=== PATIENT | male | born 1970 | race Caucasian/White ===

== ENCOUNTER → 2018-01-27 09:03 | Outpatient (CLI) | payer MEDICARE, SELFPAY ==
[2018-01-27 12:39] LABS: Absolute Lymphocyte Count 2.05 X10^3/ul (0.83-4.51); Absolute Neutrophil Count 6.1 X10^3/uL (2.0-7.7); Basophil# 0.05 X10^3/uL; Basophil% 0.5 % (0-1); Eosinophil# 0.26 X10^3/uL; Eosinophils% 2.8 % (0-5); Hematocrit 47.7 % (40-54); Hemoglobin 16.2 g/dl (13.0-16.5); Lymphocyte # 2.05 X10^3/ul (4.0); Lymphocyte % 21.9 % (19-41); Mean Corpuscular Volume 94.3 fL (80-94); Mean Platelet Vol. 10.4 fl (6.2-12.0); Monocyte# 0.89 X10^3/uL; Monocyte% 9.5 % (0-10); Neutrophil # 6.09 X10^3/uL (2.7-7.7); Neutrophil % 65.1 % (47-70); Platelet Count 228 K/mm3 (150-450); RBC Distribution Width CV 13.7 % (11.6-14.6); RBC Distribution Width SD 46.7 fl (35.1-43.9); Red Blood Count 5.06 M/mm3 (4.6-6.2); White Blood Count 9.4 K/mm3 (4.4-11.0)
[2018-01-27 12:52] LABS: POSITIVE COUNT NO; POSITIVE DIFFERENTIAL NO; POSITIVE MORPHOLOGY NO
[2018-01-27 13:06] LABS: AST(SGOT) 21 U/L (15-37); Alanine Aminotransfer ALT/SGPT 47 U/L (16-61); Albumin, Serum 3.7 g/dL (3.2-5.0); Alkaline Phosphatase 94 U/L (45-117); Anion Gap 8 (5-15); BUN 13 mg/dL (7-18); BUN/Creat Ratio 14.9 RATIO (10-20); Calcium,Total 8.5 mg/dL (8.5-10.1); Chloride 106 mmol/L (98-107); Cholesterol 126 mg/dL (200); Creatinine, Serum 0.87 mg/dL (0.70-1.30); EST Glomerular Filtration Rate 99 mL/min (>60); Est Glom Filt Rate - Afr Amer 120 mL/min (>60); Globulin 3.7 g/dL (2.2-4.2); Glucose 126 mg/dL (74-106); High Density Lipoprotein 30 mg/dL; Potassium 4.1 mmol/L (3.5-5.1); Protein, Total 7.4 g/dL (6.4-8.2); Sodium Level 140 mmol/L (136-145); Thyroid Stim Hormone (TSH) 1.85 uIU/mL (0.358-3.74); Triglycerides 292 mg/dL; Very Low Density Lipoprotein 58 mg/dL (5-40)
== END ==
PROVIDERS: Family Provider Family Medicine Geriatric Medicine; PCP Family Medicine Geriatric Medicine; Visit Provider Family Medicine Geriatric Medicine
DX: E11.9 Type 2 diabetes mellitus without complications (principal); E78.4 Other hyperlipidemia; I10 Essential (primary) hypertension
CPT/HCPCS: 36415; 80053; 80061; 84443; 85025

== ENCOUNTER 2018-06-24 08:34 | Emergency (ER) | payer MEDICARE, SELFPAY ==
[2018-06-24 08:34] VITALS: BP 144/83; PULSE 77; RESP 17; TEMP 36.2; O2SAT 96; BMI 32.5
--- NOTE | 2018-06-24 08:45 | ED.VISSUMM ---
- ER Visit Summary Date of Service: 06/24/18 Chief Complaint: Rash History of Present Illness: The patient is a 48 M presenting for evaluation secondary to rash. Patient states that he developed a rash yesterday on his left chest. It seemed to spread throughout the course of the day. It is painful. He denies that he is having any sort of cough shortness of breath fevers or any other associated symptoms. He does have a history of chickenpox. Physical Examination: Vital signs within normal limits no fever. Skin exam shows evidence of a dermatomal vesicular rash. Test Results: None indicated Emergency Department Course and Treatment: Patient presented with dermatomal vesicular rash consistent with zoster. He will be treated with Valtrex. Disposition: Discharge Impression: 1. Varicella-zoster This note was generated with [employer] dictation software. It may contain incorrect words, spelling, and punctuation that were not noted in review of the chart prior to signing ED Disposition - Plan for ED Patient: Disposition: Home or Assisted Living Chief Complaint: Rash Diagnosis: Shingles Instructions: ED Shingles Prescriptions: Valacyclovir HCl [Valtrex] 1,000 mg PO TID #21 tab Referrals: Jb Antunez Chi, MD [Primary Care Provider] - As Needed
--- NOTE | 2018-06-24 08:52 | ED.DCSUM_ITS ---
- ER Visit Summary Date of Service: 06/24/18 Chief Complaint: Rash History of Present Illness: The patient is a 48 M presenting for evaluation secondary to rash. Patient states that he developed a rash yesterday on his left chest. It seemed to spread throughout the course of the day. It is painful. He denies that he is having any sort of cough shortness of breath fevers or any other associated symptoms. He does have a history of chickenpox. Physical Examination: Vital signs within normal limits no fever. Skin exam shows evidence of a dermatomal vesicular rash. Test Results: None indicated Emergency Department Course and Treatment: Patient presented with dermatomal vesicular rash consistent with zoster. He will be treated with Valtrex. Disposition: Discharge Impression: 1. Varicella-zoster This note was generated with [employer] dictation software. It may contain incorrect words, spelling, and punctuation that were not noted in review of the chart prior to signing ED Disposition - Plan for ED Patient: Disposition: Home or Assisted Living Chief Complaint: Rash Diagnosis: Shingles Instructions: ED Shingles Prescriptions: Valacyclovir HCl [Valtrex] 1,000 mg PO TID #21 tab Referrals: Jb Antunez Chi, MD [Primary Care Provider] - As Needed
== END 2018-06-24 09:11 | disposition home or self-care (01) ==
LOC: ED 09:00
PROVIDERS: Emergency Provider Emergency Medicine; Family Provider Family Medicine Geriatric Medicine; PCP Family Medicine Geriatric Medicine
DX: B01.9 Varicella without complication (principal); I42.9 Cardiomyopathy, unspecified; I10 Essential (primary) hypertension; Z79.899 Other long term (current) drug therapy
CPT/HCPCS: 99282

== ENCOUNTER → 2018-08-03 10:18 | Outpatient (CLI) | payer MEDICARE, SELFPAY ==
[2018-08-03 12:31] LABS: Absolute Lymphocyte Count 1.76 X10^3/ul (0.83-4.51); Absolute Neutrophil Count 6.8 X10^3/uL (2.0-7.7); Basophil# 0.05 X10^3/uL; Basophil% 0.5 % (0-1); Eosinophil# 0.26 X10^3/uL; Eosinophils% 2.7 % (0-5); Hematocrit 48.6 % (40-54); Hemoglobin 16.4 g/dl (13.0-16.5); Lymphocyte # 1.76 X10^3/ul (4.0); Lymphocyte % 18.4 % (19-41); Mean Corp Hgb Conc 33.7 g/gl (32-36); Mean Corpuscular Hgb 31.8 pg (27.0-32.0); Mean Corpuscular Volume 94.4 fL (80-94); Mean Platelet Vol. 10.6 fl (6.2-12.0); Monocyte# 0.67 X10^3/uL; Neutrophil # 6.79 X10^3/uL (2.7-7.7); Neutrophil % 71.3 % (47-70); Platelet Count 218 K/mm3 (150-450); RBC Distribution Width CV 13.4 % (11.6-14.6); RBC Distribution Width SD 46.2 fl (35.1-43.9); Red Blood Count 5.15 M/mm3 (4.6-6.2); White Blood Count 9.5 K/mm3 (4.4-11.0)
[2018-08-03 12:40] LABS: POSITIVE COUNT NO; POSITIVE DIFFERENTIAL NO; POSITIVE MORPHOLOGY NO
[2018-08-03 12:54] LABS: ALB/GLOB Ratio 0.9 RATIO (0.9-2.4); AST(SGOT) 17 U/L (15-37); Alanine Aminotransfer ALT/SGPT 33 U/L (16-61); Albumin, Serum 3.3 g/dL (3.2-5.0); Alkaline Phosphatase 108 U/L (45-117); Anion Gap 8 (5-15); BUN 14 mg/dL (7-18); BUN/Creat Ratio 15.4 RATIO (10-20); Calcium,Total 8.5 mg/dL (8.5-10.1); Chloride 104 mmol/L (98-107); Cholesterol 168 mg/dL (200); Creatinine, Serum 0.91 mg/dL (0.70-1.30); EST Glomerular Filtration Rate 95 mL/min (>60); Est Glom Filt Rate - Afr Amer 114 mL/min (>60); Globulin 3.8 g/dL (2.2-4.2); Glucose 149 mg/dL (74-106); High Density Lipoprotein 31 mg/dL; Potassium 3.8 mmol/L (3.5-5.1); Protein, Total 7.1 g/dL (6.4-8.2); Sodium Level 141 mmol/L (136-145); Thyroid Stim Hormone (TSH) 2.34 uIU/mL (0.358-3.74); Triglycerides 458 mg/dL; Uric Acid 6.5 mg/dL (3.5-7.2)
== END ==
LOC: POLAB3 10:38
PROVIDERS: Family Provider Family Medicine Geriatric Medicine; PCP Family Medicine Geriatric Medicine; Visit Provider Family Medicine Geriatric Medicine
DX: E11.9 Type 2 diabetes mellitus without complications (principal); E78.49 Other hyperlipidemia; I10 Essential (primary) hypertension; M10.9 Gout, unspecified
CPT/HCPCS: 36415; 80053; 80061; 84443; 84550; 85025

== ENCOUNTER → 2019-09-21 15:28 | Outpatient (CLI) | payer MEDICARE, SELFPAY ==
[2019-09-21 17:00] LABS: Absolute Lymphocyte Count 2.59 X10^3/uL (0.83-4.51); Absolute Neutrophil Count 4.8 X10^3/uL (2.0-7.7); Basophil% 1.2 % (0-1); Eosinophil# 0.36 X10^3/uL; Eosinophils% 4.2 % (0-5); Hematocrit 51.8 % (40-54); Hemoglobin 17.4 g/dL (13.0-16.5); Lymphocyte # 2.59 X10^3/ul (4.0); Lymphocyte % 30.4 % (19-41); Mean Corp Hgb Conc 33.6 g/dL (32-36); Mean Corpuscular Hgb 30.7 pg (27.0-32.0); Mean Corpuscular Volume 91.5 fL (80-94); Mean Platelet Vol. 9.9 fl (6.2-12.0); Monocyte# 0.68 X10^3/uL; NRBC Flagged by Analyzer 0 % (0-5); Neutrophil # 4.77 X10^3/uL (2.7-7.7); Neutrophil % 55.8 % (47-70); Platelet Count 225 K/mm3 (150-450); RBC Distribution Width CV 13.2 % (11.6-14.6); RBC Distribution Width SD 44.1 fl (35.1-43.9); Red Blood Count 5.66 M/mm3 (4.6-6.2); White Blood Count 8.5 K/mm3 (4.4-11.0)
[2019-09-21 17:29] LABS: Vitamin D,25 Hydroxy 6.5 ng/mL (29.95-100.01)
[2019-09-21 17:33] LABS: ALB/GLOB Ratio 0.9 RATIO (0.9-2.4); AST(SGOT) 11 U/L (15-37); Alanine Aminotransfer ALT/SGPT 40 U/L (16-61); Albumin, Serum 3.7 g/dL (3.2-5.0); Alkaline Phosphatase 93 U/L (45-117); Anion Gap 7 (5-15); BUN 11 mg/dL (7-18); BUN/Creat Ratio 11.5 RATIO (10-20); Calcium,Total 8.7 mg/dL (8.5-10.1); Chloride 99 mmol/L (98-107); Cholesterol 330 mg/dL (200); Creatinine, Serum 0.95 mg/dL (0.70-1.30); EST Glomerular Filtration Rate 89 mL/min (>60); Est Glom Filt Rate - Afr Amer 108 mL/min (>60); Globulin 4.1 g/dL (2.2-4.2); Glucose 154 mg/dL (74-106); High Density Lipoprotein 33 mg/dL; Potassium 3.9 mmol/L (3.5-5.1); Protein, Total 7.8 g/dL (6.4-8.2); Sodium Level 134 mmol/L (136-145); Thyroid Stim Hormone (TSH) 2.49 uIU/mL (0.358-3.74); Triglycerides 1001 mg/dL
== END ==
PROVIDERS: PCP Family Medicine Geriatric Medicine; Visit Provider Family Medicine Geriatric Medicine
DX: I10 Essential (primary) hypertension (principal); E11.9 Type 2 diabetes mellitus without complications; E55.9 Vitamin D deficiency, unspecified; E78.5 Hyperlipidemia, unspecified
CPT/HCPCS: 36415; 80053; 80061; 82306; 84443; 85025

== ENCOUNTER → 2019-09-26 11:32 | Outpatient (CLI) | payer MEDICARE, SELFPAY ==
--- NOTE | 2019-09-26 | LES_PTH ---
PATIENT: STAN SCOTT [facility] U#:[id number] AGE/SX: 55/M ROOM: RE09/26/[address]: Dr. Jb Antunez MD : 1970 BED: DIS: SPEC #: [id number] RECD: 09/26/19 12:54 STATUS: LUCIAN RESarai #: [id number] ISABELLA: 09/26/19 00:[address]: Jb Antunez Chi DEPT: SURGICAL PATHOLOGY RECD BY: Mario Phan Tissues: A - Skin of external ear, NOS B - Skin of neck, NOS Procedures: Surgery Specimen Level IV HEADER OPERATION: Biopsy PRE-OP DIAGNOSIS: L98.9 TISSUE SUBMITTED: A - Left ear, B - Left neck MICROSCOPIC DIAGNOSIS A. Left ear, biopsy: Pigmented seborrheic keratosis. B. Left neck, biopsy: Squamous papilloma. SJ:ermelinda 09/27/19 MICROSCOPIC DESCRIPTION Slides are reviewed. GROSS DESCRIPTION A - Received in fixative is one container labeled with the patient's name and designated left ear. The specimen consists of a flat round piece of brown skin measuring 0.5 x 0.5 x 0.1 cm. The specimen is inked and submitted entirely in one cassette. It will be bisected at the time of embedding. B - Received in fixative is one container labeled with the patient's name and designated left neck. The specimen consists of a round piece of la-brown skin measuring 0.3 cm in diameter and 0.1 cm in thickness. The specimen is totally submitted in one cassette. / SJ:rg 09/26/19 TC:1 CPT: 73581 x2
== END ==
PROVIDERS: PCP Family Medicine Geriatric Medicine; Visit Provider Family Medicine Geriatric Medicine
DX: L98.9 Disorder of the skin and subcutaneous tissue, unspecified (principal)
CPT/HCPCS: 88305

== ENCOUNTER → 2019-10-25 07:36 | Outpatient (CLI) | payer MEDICARE, SELFPAY ==
[2019-10-11 11:14] VITALS: BMI 32.5
--- NOTE | 2019-10-25 07:39 | RAD_ITS ---
STUDY: X-RAY - LEFT KNEE REASON FOR EXAM: Male, 49 years old. PAIN. NKI, ACUTE. CLINICAL HISTORY: 49 years Male, PAIN. NKI, ACUTE. COMPARISON: None FINDINGS: [Studies of the left knee in 4 projections shows no evidence of fracture, dislocation, or bony destruction.] RAD/Knee 4 or More Views IMPRESSION: [Normal left knee.] Electronically Signed: Rigoberto Ayad, at 12:27 EST Tel , Service support ,
== END ==
LOC: RAD 07:37
PROVIDERS: PCP Family Medicine Geriatric Medicine; Referring Provider Family Medicine Geriatric Medicine; Visit Provider Family Medicine Geriatric Medicine
DX: M25.562 Pain in left knee (principal)
CPT/HCPCS: 73564

== ENCOUNTER → 2019-11-10 07:41 | Outpatient (CLI) | payer MEDICARE, SELFPAY ==
[2019-10-11 11:14] VITALS: BMI 32.5
--- NOTE | 2019-11-10 07:42 | ECHOD_ITS ---
Reason For Study: DYSPNEA/SOB Procedure This was a 2D Doppler, Color Flow transthoracic echocardiogram. Exam performed in department. Left Ventricle Moderately dilated left ventricle. The estimated ejection fraction is 30 %. Stage 1 diastolic dysfunction. No regional wall motion abnormalities noted. Right Ventricle Normal RV size. Normal systolic function. Atria Normal left atrium. Normal right atrium. Mitral Valve Normal mitral valve. Tricuspid Valve Normal tricuspid valve. Mild tricuspid valve insufficiency. Aortic Valve The aortic valve is not well visualized. Pulmonic Valve The pulmonic valve is not well visualized. Great Vessels Normal aortic root. The pulmonary artery is normal size. Normal inferior vena cava. Pericardium/Pleural No pericardial effusion. MMode/2D Measurements & Calculations LVIDd: 6.1 cm IVSd: 1.1 cm Ao root diam: 3.0 cm LVIDs: 4.9 cm LVPWd: 1.1 cm RVDd: 3.4 cm FS: 19.7 % LAV(MOD-bp): 44.5 ml LA A4 area: 14.8 cm2 LA dimension(2D): 4.0 cm LAV(MOD-bp) Indexed: 19.0 ml/m2 LAV(MOD-sp2): 50.0 ml LAV(MOD-sp4): 37.5 ml RA A4 area: 12.4 cm2 Time Measurements MV dec time: 0.18 sec Doppler Measurements & Calculations MV E max boo: 53.6 cm/sec Lat Peak E' Boo: 7.8 cm/sec Med Peak E' Boo: 5.1 cm/sec MV A max boo: 67.2 cm/sec E/E' lat: 6.9 E/E' med: 10.5 MV E/A: 0.80 Ao V2 max: 121.2 cm/sec LV V1 max: 93.1 cm/sec PA V2 max: 103.3 cm/sec Ao max P.9 mmHg LV V1 max P.5 mmHg TR max boo: 224.6 cm/sec TR max P.2 mmHg Interpretation Summary Moderately dilated left ventricle. The estimated ejection fraction is 30 %. Stage 1 diastolic dysfunction. Mild tricuspid valve insufficiency. Compared to prior study, there is no significant change. Ordering Physician: Sp Bush Referring Physician: Jb Antunez Chi Performed By: Sandra Aguilar, BARRERA, RVT
== END ==
LOC: CVS 07:42
PROVIDERS: PCP Family Medicine Geriatric Medicine; Referring Provider Internal Medicine Cardiovascular Disease; Visit Provider Internal Medicine Cardiovascular Disease
DX: I42.8 Other cardiomyopathies (principal)
CPT/HCPCS: 93306

== ENCOUNTER → 2019-11-21 13:36 | Outpatient (CLI) | payer MEDICARE, SELFPAY ==
[2019-10-11 11:14] VITALS: BMI 32.5
[2019-11-21 16:48] LABS: Anion Gap 5 (5-15); BUN 16 mg/dL (7-18); BUN/Creat Ratio 16.6 RATIO (10-20); Calcium,Total 9.1 mg/dL (8.5-10.1); Chloride 103 mmol/L (98-107); Creatinine, Serum 0.96 mg/dL (0.70-1.30); EST Glomerular Filtration Rate 88 mL/min (>60); Est Glom Filt Rate - Afr Amer 107 mL/min (>60); Glucose 117 mg/dL (74-106); Potassium 4.1 mmol/L (3.5-5.1); Sodium Level 136 mmol/L (136-145)
== END ==
LOC: POLAB3 13:36
PROVIDERS: PCP Family Medicine Geriatric Medicine; Visit Provider Family Medicine Geriatric Medicine
DX: E87.6 Hypokalemia (principal)
CPT/HCPCS: 36415; 80048

== ENCOUNTER → 2020-01-08 10:55 | Outpatient (CLI) | payer MEDICARE, SELFPAY ==
[2020-01-01 10:02] VITALS: BMI 32.5
--- NOTE | 2020-01-08 10:57 | MRI_ITS ---
STUDY: MRI LEFT KNEE REASON FOR EXAM: Male, 49 years old. Knee pain TECHNIQUE: Standardized fat and water weighted pulse sequences were obtained in all 3 orthogonal planes. COMPARISON: X-ray 10/25/2019 FINDINGS: Normal medial meniscus. Normal hyaline cartilage of the medial femorotibial compartment. Normal medial femoral condyle and tibial plateau. Normal medial collateral ligamentous complex (MCL). Normal distal semimembranosus, gracilis and semitendinosus tendons. Normal lateral meniscus. Normal hyaline cartilage of the lateral femorotibial compartment. Normal lateral femoral condyle and tibial plateau. Normal proximal tibiofibular articulation. Normal lateral collateral (fibular) ligament. Normal popliteus tendon. Normal biceps femoris tendon. Normal anterior cruciate ligament (ACL). Normal posterior cruciate ligament (PCL). Shallow trochlear groove with lateral subluxation of patella and edema superolateral Hoffa''s fat pad consistent with patellofemoral maltracking. Normal hyaline cartilage of the patellofemoral compartment. Normal medial and lateral patellar retinaculum. Normal quadriceps tendon. Normal patellar tendon. Normal Hoffa''s fat pad. There is no joint effusion. The soft tissues are unremarkable. The otherwise visualized osseous structures are unremarkable. MRI/Lower Ext Joint Only (Routine) IMPRESSION: Patellofemoral maltracking. Electronically Signed: Nghia Tesfaye MD at 12:49 EDT Tel , Service support ,
== END ==
LOC: MRI 10:57
PROVIDERS: PCP Family Medicine Geriatric Medicine; Referring Provider Orthopaedic Surgery; Visit Provider Orthopaedic Surgery
DX: M23.92 Unspecified internal derangement of left knee (principal)
CPT/HCPCS: 73721

== ENCOUNTER → 2020-03-14 11:26 | Outpatient (CLI) | payer MEDICARE, SELFPAY ==
[2019-10-11 11:14] VITALS: BMI 32.5
[2020-01-01 10:02] VITALS: BMI 32.5
[2020-03-14 12:02] LABS: Absolute Lymphocyte Count 2.36 X10^3/uL (0.83-4.51); Absolute Neutrophil Count 5.5 X10^3/uL (2.0-7.7); Basophil% 1.1 % (0-1); Eosinophil# 0.24 X10^3/uL; Eosinophils% 2.6 % (0-5); Hematocrit 48.3 % (40-54); Hemoglobin 16.1 g/dL (13.0-16.5); Lymphocyte # 2.36 X10^3/ul (4.0); Lymphocyte % 25.7 % (19-41); Mean Corp Hgb Conc 33.3 g/dL (32-36); Mean Corpuscular Hgb 31.4 pg (27.0-32.0); Mean Corpuscular Volume 94.3 fL (80-94); Monocyte# 0.99 X10^3/uL; Monocyte% 10.8 % (0-10); NRBC Flagged by Analyzer 0 % (0-5); Neutrophil # 5.47 X10^3/uL (2.7-7.7); Neutrophil % 59.5 % (47-70); Platelet Count 226 K/mm3 (150-450); RBC Distribution Width CV 13.2 % (11.6-14.6); Red Blood Count 5.12 M/mm3 (4.6-6.2); White Blood Count 9.2 K/mm3 (4.4-11.0)
[2020-03-14 12:24] LABS: AST(SGOT) 17 U/L (15-37); Alanine Aminotransfer ALT/SGPT 32 U/L (16-61); Albumin, Serum 3.7 g/dL (3.2-5.0); Alkaline Phosphatase 87 U/L (45-117); Anion Gap 4 (5-15); BUN 11 mg/dL (7-18); BUN/Creat Ratio 12.8 RATIO (10-20); Calcium,Total 8.6 mg/dL (8.5-10.1); Chloride 107 mmol/L (98-107); Cholesterol 160 mg/dL (200); Creatinine, Serum 0.86 mg/dL (0.70-1.30); EST Glomerular Filtration Rate 100 mL/min (>60); Est Glom Filt Rate - Afr Amer 121 mL/min (>60); Globulin 3.6 g/dL (2.2-4.2); Glucose 126 mg/dL (74-106); High Density Lipoprotein 32 mg/dL; Protein, Total 7.3 g/dL (6.4-8.2); Sodium Level 138 mmol/L (136-145); Thyroid Stim Hormone (TSH) 1.98 uIU/mL (0.358-3.74); Triglycerides 384 mg/dL; Very Low Density Lipoprotein 77 mg/dL (5-40)
== END ==
LOC: POLAB3 11:26
PROVIDERS: PCP Family Medicine Geriatric Medicine; Visit Provider Family Medicine Geriatric Medicine
DX: E11.9 Type 2 diabetes mellitus without complications (principal); E55.9 Vitamin D deficiency, unspecified; E78.5 Hyperlipidemia, unspecified; I10 Essential (primary) hypertension
CPT/HCPCS: 36415; 80053; 80061; 84443; 85025

== ENCOUNTER → 2020-05-22 13:34 | Outpatient (CLI) | payer MEDICARE, SELFPAY ==
[2020-04-15 09:42] VITALS: BMI 33.7
--- NOTE | 2020-05-22 13:36 | ECHOCS_ITS ---
Version 2 Reason For Study: CHF Procedure This was a 2D Doppler, Color Flow transthoracic echocardiogram. Contrast injection was performed. Exam performed in department. Left Ventricle Normal LV size. Mild concentric left ventricular hypertrophy. The estimated ejection fraction is 25 %. Moderately severe global left ventricular systolic dysfunction. Stage 1 diastolic dysfunction. There is moderate to severe global hypokinesis of the left ventricle. Right Ventricle Normal RV size. Normal systolic function. Atria The left atrium is mildly enlarged. Normal right atrium. Mitral Valve Normal mitral valve. Tricuspid Valve Normal tricuspid valve. Aortic Valve The aortic valve is not well visualized. Pulmonic Valve The pulmonic valve is not well visualized. Great Vessels Normal aortic root. The pulmonary artery is normal size. Normal inferior vena cava. Pericardium/Pleural No pericardial effusion. Medication Diluted definity 5ml given slow IV push to enhance endocardial definition. MMode/2D Measurements & Calculations LVIDd: 5.0 cm IVSd: 1.2 cm Ao root diam: 2.8 cm LVIDs: 4.3 cm LVPWd: 1.3 cm RVDd: 3.7 cm FS: 15.2 % LAV(MOD-bp): 38.3 ml LVAd ap4: 39.8 cm2 SV(MOD-sp4): 57.6 ml LAV(MOD-bp) Indexed: 16.1 ml/m2 EDV(MOD-sp4): 152.6 ml LAV(MOD-sp2): 33.4 ml EDV(sp4-el): 159.2 ml LAV(MOD-sp4): 37.4 ml LVAs ap4: 29.9 cm2 ESV(MOD-sp4): 95.0 ml ESV(sp4-el): 99.3 ml EF(MOD-sp4): 37.7 % EF(sp4-el): 37.6 % SV(sp4-el): 59.9 ml LA A4 area: 16.1 cm2 LA dimension(2D): 4.0 cm RA A4 area: 14.7 cm2 Doppler Measurements & Calculations MV E max boo: 48.3 cm/sec Lat Peak E' Boo: 8.7 cm/sec Med Peak E' Boo: 5.7 cm/sec MV A max boo: 74.0 cm/sec E/E' lat: 5.5 E/E' med: 8.4 MV E/A: 0.65 Ao V2 max: 123.1 cm/sec LV V1 max: 91.7 cm/sec PA V2 max: 89.0 cm/sec Ao max P.1 mmHg LV V1 max P.4 mmHg Ao V2 mean: 95.4 cm/sec Ao mean P.8 mmHg Ao V2 VTI: 21.9 cm Interpretation Summary The estimated ejection fraction is 25 %. Moderately severe global left ventricular systolic dysfunction. There is moderate to severe global hypokinesis of the left ventricle. Stage 1 diastolic dysfunction. Normal LV size. Mild concentric left ventricular hypertrophy. Compared to previous study, the left ventricular systolic function is the same.. Ordering Physician: Rigoberto Pereyra Referring Physician: Jb Antunez Chi Performed By: Teodora Pereyra RDCS, KRIS
== END ==
LOC: CVS 13:36
PROVIDERS: PCP Family Medicine Geriatric Medicine; Referring Provider Nurse Practitioner Family; Visit Provider Nurse Practitioner Family
DX: I50.9 Heart failure, unspecified (principal); I42.8 Other cardiomyopathies
CPT/HCPCS: 93306; Q9957; A4216; C8929

== ENCOUNTER → 2020-06-17 09:04 | Outpatient (CLI) | payer MEDICARE, SELFPAY ==
[2020-04-15 09:42] VITALS: BMI 33.7
[2020-06-17 12:21] LABS: Absolute Lymphocyte Count 1.96 X10^3/uL (0.83-4.51); Absolute Neutrophil Count 4.5 X10^3/uL (2.0-7.7); Basophil# 0.08 X10^3/uL; Basophil% 1.1 % (0-1); Eosinophil# 0.16 X10^3/uL; Eosinophils% 2.2 % (0-5); Hematocrit 48.3 % (40-54); Hemoglobin 15.8 g/dL (13.0-16.5); Lymphocyte # 1.96 X10^3/ul (4.0); Lymphocyte % 26.4 % (19-41); Mean Corp Hgb Conc 32.7 g/dL (32-36); Mean Corpuscular Hgb 30.9 pg (27.0-32.0); Mean Corpuscular Volume 94.5 fL (80-94); Monocyte# 0.73 X10^3/uL; Monocyte% 9.8 % (0-10); NRBC Flagged by Analyzer 0 % (0-5); Neutrophil # 4.48 X10^3/uL (2.7-7.7); Neutrophil % 60.2 % (47-70); Platelet Count 228 K/mm3 (150-450); RBC Distribution Width CV 13.3 % (11.6-14.6); RBC Distribution Width SD 46.9 fl (35.1-43.9); Red Blood Count 5.11 M/mm3 (4.6-6.2); White Blood Count 7.4 K/mm3 (4.4-11.0)
[2020-06-17 12:43] LABS: AST(SGOT) 18 U/L (15-37); Alanine Aminotransfer ALT/SGPT 35 U/L (16-61); Albumin, Serum 3.5 g/dL (3.2-5.0); Alkaline Phosphatase 82 U/L (45-117); Anion Gap 9 (5-15); BUN 15 mg/dL (7-18); BUN/Creat Ratio 16.3 RATIO (10-20); Calcium,Total 7.9 mg/dL (8.5-10.1); Chloride 99 mmol/L (98-107); Cholesterol 148 mg/dL (200); Creatinine, Serum 0.92 mg/dL (0.70-1.30); EST Glomerular Filtration Rate 93 mL/min (>60); Est Glom Filt Rate - Afr Amer 112 mL/min (>60); Globulin 3.4 g/dL (2.2-4.2); Glucose 120 mg/dL (74-106); High Density Lipoprotein 33 mg/dL; Potassium 3.8 mmol/L (3.5-5.1); Protein, Total 6.9 g/dL (6.4-8.2); Sodium Level 135 mmol/L (136-145); Thyroid Stim Hormone (TSH) 2.14 uIU/mL (0.358-3.74); Triglycerides 391 mg/dL; Very Low Density Lipoprotein 78 mg/dL (5-40)
== END ==
PROVIDERS: PCP Family Medicine Geriatric Medicine; Visit Provider Family Medicine Geriatric Medicine
DX: E11.9 Type 2 diabetes mellitus without complications (principal); E78.5 Hyperlipidemia, unspecified; I10 Essential (primary) hypertension
CPT/HCPCS: 36415; 80053; 80061; 84443; 85025

== ENCOUNTER → 2020-10-30 09:25 | Outpatient (CLI) | payer MEDICARE, SELFPAY ==
[2020-04-15 09:42] VITALS: BMI 33.7
[2020-10-30 12:21] LABS: Absolute Lymphocyte Count 1.68 X10^3/uL (0.83-4.51); Absolute Neutrophil Count 3.9 X10^3/uL (2.0-7.7); Basophil# 0.09 X10^3/uL; Basophil% 1.3 % (0-1); Eosinophil# 0.21 X10^3/uL; Eosinophils% 3.1 % (0-5); Hematocrit 48.2 % (40-54); Hemoglobin 16.1 g/dL (13.0-16.5); Lymphocyte # 1.68 X10^3/ul (4.0); Lymphocyte % 25.1 % (19-41); Mean Corp Hgb Conc 33.4 g/dL (32-36); Mean Corpuscular Hgb 31.5 pg (27.0-32.0); Mean Corpuscular Volume 94.3 fL (80-94); Mean Platelet Vol. 10.6 fl (6.2-12.0); Monocyte# 0.75 X10^3/uL; Monocyte% 11.2 % (0-10); NRBC Flagged by Analyzer 0 % (0-5); Neutrophil # 3.93 X10^3/uL (2.7-7.7); Platelet Count 216 K/mm3 (150-450); RBC Distribution Width CV 13.4 % (11.6-14.6); RBC Distribution Width SD 46.6 fl (35.1-43.9); Red Blood Count 5.11 M/mm3 (4.6-6.2); White Blood Count 6.7 K/mm3 (4.4-11.0)
[2020-10-30 12:50] LABS: AST(SGOT) 20 U/L (15-37); Alanine Aminotransfer ALT/SGPT 35 U/L (16-61); Albumin, Serum 3.7 g/dL (3.2-5.0); Alkaline Phosphatase 85 U/L (45-117); Anion Gap 6 (5-15); BUN 12 mg/dL (7-18); BUN/Creat Ratio 13.1 RATIO (10-20); Calcium,Total 8.9 mg/dL (8.5-10.1); Chloride 101 mmol/L (98-107); Cholesterol 144 mg/dL (200); Creatinine, Serum 0.92 mg/dL (0.70-1.30); EST Glomerular Filtration Rate 93 mL/min (>60); Est Glom Filt Rate - Afr Amer 113 mL/min (>60); Globulin 3.6 g/dL (2.2-4.2); Glucose 138 mg/dL (74-106); High Density Lipoprotein 32 mg/dL; Potassium 3.9 mmol/L (3.5-5.1); Protein, Total 7.3 g/dL (6.4-8.2); Sodium Level 135 mmol/L (136-145); Thyroid Stim Hormone (TSH) 2.31 uIU/mL (0.358-3.74); Triglycerides 325 mg/dL; Very Low Density Lipoprotein 65 mg/dL (5-40)
== END ==
LOC: POLAB3 09:25
PROVIDERS: PCP Family Medicine Geriatric Medicine; Visit Provider Family Medicine Geriatric Medicine
DX: E11.9 Type 2 diabetes mellitus without complications (principal); E78.5 Hyperlipidemia, unspecified; I10 Essential (primary) hypertension
CPT/HCPCS: 36415; 80053; 80061; 84443; 85025

== ENCOUNTER → 2021-02-21 08:50 | Outpatient (CLI) | payer MEDICARE, SELFPAY ==
[2020-04-15 09:42] VITALS: BMI 33.7
[2021-02-21 12:34] LABS: Absolute Lymphocyte Count 2.29 X10^3/uL (0.83-4.51); Absolute Neutrophil Count 4.6 X10^3/uL (2.0-7.7); Basophil% 1.3 % (0-1); Eosinophil# 0.24 X10^3/uL; Eosinophils% 3.1 % (0-5); Hematocrit 49.9 % (40-54); Hemoglobin 16.7 g/dL (13.0-16.5); Lymphocyte # 2.29 X10^3/ul (0.83-4.51); Lymphocyte % 29.1 % (19-41); Mean Corp Hgb Conc 33.5 g/dL (32-36); Mean Corpuscular Hgb 31.2 pg (27.0-32.0); Mean Corpuscular Volume 93.1 fL (80-94); Mean Platelet Vol. 9.9 fl (6.2-12.0); Monocyte# 0.61 X10^3/uL; Monocyte% 7.8 % (0-10); NRBC Flagged by Analyzer 0 % (0-5); Neutrophil % 58.4 % (47-70); Platelet Count 206 K/mm3 (150-450); RBC Distribution Width CV 13.7 % (11.6-14.6); RBC Distribution Width SD 46.9 fl (35.1-43.9); Red Blood Count 5.36 M/mm3 (4.6-6.2); White Blood Count 7.9 K/mm3 (4.4-11.0)
[2021-02-21 12:56] LABS: Vitamin D,25 Hydroxy 14.5 ng/mL
[2021-02-21 13:08] LABS: ALB/GLOB Ratio 1.1 RATIO (0.9-2.4); AST(SGOT) 16 U/L (15-37); Alanine Aminotransfer ALT/SGPT 41 U/L (16-61); Albumin, Serum 3.7 g/dL (3.2-5.0); Alkaline Phosphatase 70 U/L (45-117); Anion Gap 8 (5-15); BUN 17 mg/dL (7-18); BUN/Creat Ratio 17.7 RATIO (10-20); Calcium,Total 8.6 mg/dL (8.5-10.1); Chloride 101 mmol/L (98-107); Cholesterol 195 mg/dL (200); Creatinine, Serum 0.96 mg/dL (0.70-1.30); EST Glomerular Filtration Rate 88 mL/min (>60); Est Glom Filt Rate - Afr Amer 107 mL/min (>60); Globulin 3.5 g/dL (2.2-4.2); Glucose 191 mg/dL (74-106); High Density Lipoprotein 27 mg/dL; Potassium 3.9 mmol/L (3.5-5.1); Protein, Total 7.2 g/dL (6.4-8.2); Sodium Level 135 mmol/L (136-145); Thyroid Stim Hormone (TSH) 3.09 uIU/mL (0.358-3.74); Triglycerides 678 mg/dL; Uric Acid 6.6 mg/dL (3.5-7.2)
== END ==
LOC: POLAB3 08:51
PROVIDERS: PCP Family Medicine Geriatric Medicine; Referring Provider Family Medicine Geriatric Medicine; Visit Provider Family Medicine Geriatric Medicine
DX: E11.9 Type 2 diabetes mellitus without complications (principal); E55.9 Vitamin D deficiency, unspecified; E78.5 Hyperlipidemia, unspecified; I10 Essential (primary) hypertension; M10.9 Gout, unspecified
CPT/HCPCS: 36415; 80053; 80061; 82306; 84443; 84550; 85025

== ENCOUNTER → 2021-05-26 09:42 | Outpatient (CLI) | payer MEDICARE, SELFPAY ==
[2021-03-31 08:17] VITALS: BMI 34.7
--- NOTE | 2021-05-26 09:46 | ECHOCS_ITS ---
Reason For Study: CHF Procedure This was a 2D Doppler, Color Flow transthoracic echocardiogram. The study was technically difficult. Contrast injection was performed. Exam performed in department. Left Ventricle Normal LV size. Mild concentric left ventricular hypertrophy. The estimated ejection fraction is 45 %. Stage 1 diastolic dysfunction. There is borderline global hypokinesis of the left ventricle. Right Ventricle Normal RV size. Normal systolic function. Atria Normal left atrium. Normal right atrium. Mitral Valve Normal mitral valve. Tricuspid Valve Normal tricuspid valve. Great Vessels Normal aortic root. The pulmonary artery is normal size. Pericardium/Pleural No pericardial effusion. Medication 22 gauge I.V. with prn adaptor inserted into right arm. Diluted definity 4.0ml given slow IV push to enhance endocardial definition. MMode/2D Measurements & Calculations LVIDd: 5.5 cm IVSd: 1.2 cm Ao root diam: 3.5 cm LVIDs: 4.3 cm LVPWd: 1.3 cm RVDd: 3.4 cm FS: 21.0 % LAV(MOD-bp): 49.3 ml LVAd ap4: 40.2 cm2 LVAd ap2: 38.1 cm2 LAV(MOD-bp) Indexed: 20.4 ml/m2 LVLd ap4: 9.1 cm LVLd ap2: 8.3 cm LAV(MOD-sp2): 46.9 ml EDV(MOD-sp4): 147.0 ml EDV(MOD-sp2): 142.3 ml LAV(MOD-sp4): 51.0 ml EDV(sp4-el): 150.7 ml EDV(sp2-el): 148.9 ml LVAs ap4: 27.0 cm2 LVAs ap2: 28.1 cm2 LVLs ap4: 7.6 cm LVLs ap2: 7.6 cm ESV(MOD-sp4): 79.0 ml ESV(MOD-sp2): 83.7 ml ESV(sp4-el): 81.4 ml ESV(sp2-el): 88.3 ml EF(MOD-sp4): 46.3 % EF(MOD-sp2): 41.2 % EF(sp4-el): 46.0 % SV(MOD-sp4): 68.1 ml SV(MOD-sp2): 58.6 ml SV(sp4-el): 69.3 ml LA dimension(2D): 3.7 cm LA A4 area: 18.4 cm2 RA A4 area: 13.2 cm2 Doppler Measurements & Calculations MV E max boo: 64.2 cm/sec Lat Peak E' Boo: 9.0 cm/sec Med Peak E' Boo: 6.6 cm/sec MV A max boo: 74.7 cm/sec E/E' lat: 7.2 E/E' med: 9.8 MV E/A: 0.86 Ao V2 max: 147.6 cm/sec LV V1 max: 100.3 cm/sec TR max boo: 269.4 cm/sec Ao max P.7 mmHg LV V1 max P.0 mmHg TR max P.0 mmHg ECHO/Echo Complete W/ Contrast Interpretation Summary Normal LV size. The estimated ejection fraction is 45 %. Stage 1 diastolic dysfunction. Mild concentric left ventricular hypertrophy. Contrast injection was performed. Compared to previous study, the left ventricu lar systolic function has improved.. Ordering Physician: Caterina Burroughs Referring Physician: FELIPE DING Performed By: Savannah Rae, BARRERA, RVT
== END ==
LOC: CVS 09:45
PROVIDERS: PCP Family Medicine Geriatric Medicine; Referring Provider Nurse Practitioner Gerontology; Visit Provider Nurse Practitioner Gerontology
DX: I42.8 Other cardiomyopathies (principal); I50.9 Heart failure, unspecified
CPT/HCPCS: 93306; Q9957; A4216; C8929; J3490

== ENCOUNTER 2021-09-04 09:23 | Outpatient (CLI) | payer MEDICARE, SELFPAY ==
[2021-09-04 11:41] LABS: Absolute Neutrophil Count 8.9 X10^3/uL (2.0-7.7); Basophil# 0.09 X10^3/uL; Basophil% 0.7 % (0-1); Eosinophil# 0.31 X10^3/uL; Eosinophils% 2.6 % (0-5); Hematocrit 45.3 % (40-54); Hemoglobin 15.3 g/dL (13.0-16.5); Lymphocyte % 14.1 % (19-41); Mean Corp Hgb Conc 33.8 g/dL (32-36); Mean Corpuscular Hgb 31.7 pg (27.0-32.0); Mean Corpuscular Volume 93.8 fL (80-94); Mean Platelet Vol. 10.3 fl (6.2-12.0); Monocyte# 1.01 X10^3/uL; Monocyte% 8.4 % (0-10); NRBC Flagged by Analyzer 0 % (0-5); Neutrophil % 73.9 % (47-70); Platelet Count 213 K/mm3 (150-450); RBC Distribution Width CV 13.5 % (11.6-14.6); RBC Distribution Width SD 46.6 fl (35.1-43.9); Red Blood Count 4.83 M/mm3 (4.6-6.2); White Blood Count 12.1 K/mm3 (4.4-11.0)
[2021-09-04 12:02] LABS: ALB/GLOB Ratio 0.8 RATIO (0.9-2.4); AST(SGOT) 15 U/L (15-37); Alanine Aminotransfer ALT/SGPT 34 U/L (16-61); Albumin, Serum 3.3 g/dL (3.2-5.0); Alkaline Phosphatase 102 U/L (45-117); Anion Gap 7 (5-15); BUN 13 mg/dL (7-18); Calcium,Total 8.7 mg/dL (8.5-10.1); Chloride 101 mmol/L (98-107); Cholesterol 142 mg/dL (200); Creatinine, Serum 0.86 mg/dL (0.70-1.30); EST Glomerular Filtration Rate 99 mL/min (>60); Est Glom Filt Rate - Afr Amer 120 mL/min (>60); Globulin 4.1 g/dL (2.2-4.2); Glucose 127 mg/dL (74-106); High Density Lipoprotein 30 mg/dL; Potassium 3.7 mmol/L (3.5-5.1); Protein, Total 7.4 g/dL (6.4-8.2); Sodium Level 138 mmol/L (136-145); Thyroid Stim Hormone (TSH) 2.36 uIU/mL (0.358-3.74); Triglycerides 257 mg/dL; Very Low Density Lipoprotein 51 mg/dL (5-40)
== END 2021-09-04 23:59 | disposition short-term general hospital (02) ==
LOC: POLAB3 09:25
PROVIDERS: PCP Family Medicine Geriatric Medicine; Visit Provider Family Medicine Geriatric Medicine
DX: E11.9 Type 2 diabetes mellitus without complications (principal); E78.5 Hyperlipidemia, unspecified; I10 Essential (primary) hypertension
CPT/HCPCS: 36415; 80053; 80061; 84443; 85025

== ENCOUNTER 2021-11-21 08:52 | Outpatient (CLI) | payer MEDICARE, SELFPAY ==
[2021-11-21 11:18] LABS: Absolute Lymphocyte Count 1.87 X10^3/uL (0.83-4.51); Absolute Neutrophil Count 5.3 X10^3/uL (2.0-7.7); Basophil# 0.07 X10^3/uL; Basophil% 0.9 % (0-1); Eosinophil# 0.19 X10^3/uL; Eosinophils% 2.3 % (0-5); Hematocrit 46.3 % (40-54); Hemoglobin 16.1 g/dL (13.0-16.5); Lymphocyte # 1.87 X10^3/ul (0.83-4.51); Lymphocyte % 23.1 % (19-41); Mean Corp Hgb Conc 34.8 g/dL (32-36); Mean Corpuscular Hgb 32.3 pg (27.0-32.0); Mean Corpuscular Volume 92.8 fL (80-94); Mean Platelet Vol. 10.4 fl (6.2-12.0); Monocyte# 0.64 X10^3/uL; Monocyte% 7.9 % (0-10); NRBC Flagged by Analyzer 0 % (0-5); Neutrophil # 5.31 X10^3/uL (2.7-7.7); Neutrophil % 65.4 % (47-70); Platelet Count 228 K/mm3 (150-450); RBC Distribution Width CV 13.9 % (11.6-14.6); RBC Distribution Width SD 47.2 fl (35.1-43.9); Red Blood Count 4.99 M/mm3 (4.6-6.2); White Blood Count 8.1 K/mm3 (4.4-11.0)
[2021-11-21 11:46] LABS: AST(SGOT) 21 U/L (15-37); Alanine Aminotransfer ALT/SGPT 37 U/L (16-61); Albumin, Serum 3.5 g/dL (3.2-5.0); Alkaline Phosphatase 83 U/L (45-117); Anion Gap 6 (5-15); BUN 16 mg/dL (7-18); BUN/Creat Ratio 12.3 RATIO (10-20); Calcium,Total 8.6 mg/dL (8.5-10.1); Chloride 101 mmol/L (98-107); Cholesterol 149 mg/dL (200); EST Glomerular Filtration Rate 62 mL/min (>60); Est Glom Filt Rate - Afr Amer 75 mL/min (>60); Globulin 3.6 g/dL (2.2-4.2); Glucose 172 mg/dL (74-106); High Density Lipoprotein 31 mg/dL; Potassium 4.1 mmol/L (3.5-5.1); Protein, Total 7.1 g/dL (6.4-8.2); Sodium Level 136 mmol/L (136-145); Thyroid Stim Hormone (TSH) 1.72 uIU/mL (0.358-3.74); Triglycerides 351 mg/dL; Very Low Density Lipoprotein 70 mg/dL (5-40)
== END 2021-11-21 23:59 | disposition home or self-care (01) ==
LOC: POLAB3 08:53
PROVIDERS: PCP Family Medicine Geriatric Medicine; Visit Provider Family Medicine Geriatric Medicine
DX: E11.9 Type 2 diabetes mellitus without complications (principal); E78.5 Hyperlipidemia, unspecified; I10 Essential (primary) hypertension
CPT/HCPCS: 36415; 80053; 80061; 84443; 85025

== ENCOUNTER → 2022-01-20 | Outpatient (CLI) | payer MEDICARE, SELFPAY ==
--- NOTE | 2022-01-20 08:30 | ART_ITS ---
Reason For Study: PVD Procedure A bilateral lower extremity continuous wave Doppler with analog waveform analysis,segmental pressures,and ankle brachial indexes without exercise. Left Segmental Pressures Left brachial= 115mmHg. Left posterior tibial artery = 143mmHg. Left dorsalis pedis artery = 142mmHg. Left digit = 120 mmHg. The left dorsalis pedis waveforms are triphasic. The left posterior tibial artery waveforms are triphasic. Right Segmental Pressures Right brachial= 116mmHg. Right posterior tibial artery = 138mmHg. Right dorsalis pedis artery = 130mmHg. Right digit = 125 mmHg. The right dorsalis pedis waveforms are triphasic. The right posterior tibial artery waveforms are triphasic. Indices The right ankle brachial index by the dorsalis pedis is 1.12. The right ankle brachial index by the posterior tibial artery is 1.19. The right digital-brachial index is 1.08. The left ankle brachial index by the dorsalis pedis is 1.22. The left ankle brachial index by the posterior tibial artery is 1.23. The left digital-brachial index is 1.03. VL/Lower Ext Art Exam w/o Exercis Interpretation Summary Triphasic Doppler waveforms are noted at ankle level bilaterally. Pulse-volume recordings appear satisfactory at all levels bilaterally, including low thigh, calf, ankle, and d igital levels. Resting ankle-brachial indices are normal bilaterally. Digital-brachial indices are normal bilaterally. There is no evidence of significant arterial occlusive disease in the lower ext remities bilaterally. Ordering Physician: Km Hearn Referring Physician: Jb Antunez Chi Performed By: Roberta Joseph RVT
== END | disposition home or self-care (01) ==
LOC: CVS 08:26
PROVIDERS: PCP Family Medicine Geriatric Medicine; Referring Provider Podiatrist; Visit Provider Podiatrist
DX: I73.9 Peripheral vascular disease, unspecified (principal)
CPT/HCPCS: 93923

== ENCOUNTER → 2022-05-22 | Outpatient (CLI) | payer MEDICARE, SELFPAY ==
[2022-05-22 12:01] LABS: Absolute Lymphocyte Count 1.88 X10^3/uL (0.83-4.51); Absolute Neutrophil Count 4.9 X10^3/uL (2.0-7.7); Basophil# 0.08 X10^3/uL; Eosinophil# 0.23 X10^3/uL; Eosinophils% 2.9 % (0-5); Hematocrit 46.7 % (40-54); Lymphocyte # 1.88 X10^3/ul (0.83-4.51); Lymphocyte % 24.1 % (19-41); Mean Corp Hgb Conc 34.3 g/dL (32-36); Mean Corpuscular Hgb 32.5 pg (27.0-32.0); Mean Corpuscular Volume 94.9 fL (80-94); Mean Platelet Vol. 10.2 fl (6.2-12.0); Monocyte# 0.71 X10^3/uL; Monocyte% 9.1 % (0-10); NRBC Flagged by Analyzer 0 % (0-5); Neutrophil # 4.87 X10^3/uL (2.7-7.7); Neutrophil % 62.5 % (47-70); Platelet Count 211 K/mm3 (150-450); RBC Distribution Width CV 13.6 % (11.6-14.6); RBC Distribution Width SD 47.9 fl (35.1-43.9); Red Blood Count 4.92 M/mm3 (4.6-6.2); White Blood Count 7.8 K/mm3 (4.4-11.0)
[2022-05-22 12:26] LABS: AST(SGOT) 14 U/L (15-37); Alanine Aminotransfer ALT/SGPT 31 U/L (16-61); Albumin, Serum 3.4 g/dL (3.2-5.0); Alkaline Phosphatase 77 U/L (45-117); Anion Gap 8 (5-15); BUN 17 mg/dL (7-18); BUN/Creat Ratio 16.8 RATIO (10-20); Calcium,Total 8.6 mg/dL (8.5-10.1); Chloride 104 mmol/L (98-107); Cholesterol 177 mg/dL (200); Creatinine, Serum 1.01 mg/dL (0.70-1.30); EST Glomerular Filtration Rate 83 mL/min (>60); Est Glom Filt Rate - Afr Amer 100 mL/min (>60); Globulin 3.5 g/dL (2.2-4.2); Glucose 184 mg/dL (74-106); High Density Lipoprotein 29 mg/dL; Potassium 3.9 mmol/L (3.5-5.1); Protein, Total 6.9 g/dL (6.4-8.2); Sodium Level 140 mmol/L (136-145); Triglycerides 605 mg/dL; Uric Acid 6.8 mg/dL (3.5-7.2)
== END | disposition home or self-care (01) ==
LOC: POLAB3 08:40
PROVIDERS: PCP Family Medicine Geriatric Medicine; Visit Provider Family Medicine Geriatric Medicine
DX: E11.9 Type 2 diabetes mellitus without complications (principal); E55.9 Vitamin D deficiency, unspecified; E78.5 Hyperlipidemia, unspecified; I10 Essential (primary) hypertension; M10.9 Gout, unspecified
CPT/HCPCS: 36415; 80053; 80061; 82306; 84443; 84550; 85025

== ENCOUNTER → 2022-11-27 | Outpatient (CLI) | payer MEDICARE, SELFPAY ==
[2022-11-27 13:56] LABS: Absolute Lymphocyte Count 1.77 X10^3/uL (0.83-4.51); Absolute Neutrophil Count 3.9 X10^3/uL (2.0-7.7); Basophil# 0.06 X10^3/uL; Basophil% 0.9 % (0-1); Eosinophil# 0.26 X10^3/uL; Hematocrit 47.5 % (40-54); Hemoglobin 15.9 g/dL (13.0-16.5); Lymphocyte # 1.77 X10^3/ul (0.83-4.51); Mean Corp Hgb Conc 33.5 g/dL (32-36); Mean Corpuscular Hgb 31.4 pg (27.0-32.0); Mean Corpuscular Volume 93.9 fL (80-94); Mean Platelet Vol. 10.5 fl (6.2-12.0); Monocyte# 0.58 X10^3/uL; Monocyte% 8.8 % (0-10); NRBC Flagged by Analyzer 0 % (0-5); Neutrophil # 3.87 X10^3/uL (2.7-7.7); Platelet Count 204 K/mm3 (150-450); RBC Distribution Width CV 13.6 % (11.6-14.6); RBC Distribution Width SD 46.7 fl (35.1-43.9); Red Blood Count 5.06 M/mm3 (4.6-6.2); White Blood Count 6.6 K/mm3 (4.4-11.0)
[2022-11-27 14:08] LABS: Vitamin D,25 Hydroxy 19.8 ng/mL
[2022-11-27 14:24] LABS: ALB/GLOB Ratio 0.9 RATIO (0.9-2.4); AST(SGOT) 25 U/L (15-37); Alanine Aminotransfer ALT/SGPT 34 U/L (16-61); Albumin, Serum 3.3 g/dL (3.2-5.0); Alkaline Phosphatase 79 U/L (45-117); Anion Gap 5 (5-15); BUN 13 mg/dL (7-18); BUN/Creat Ratio 12.5 RATIO (10-20); Calcium,Total 8.5 mg/dL (8.5-10.1); Chloride 105 mmol/L (98-107); Cholesterol 174 mg/dL (200); Creatinine, Serum 1.04 mg/dL (0.70-1.30); EST Glomerular Filtration Rate 80 mL/min (>60); Est Glom Filt Rate - Afr Amer 97 mL/min (>60); Globulin 3.5 g/dL (2.2-4.2); Glucose 132 mg/dL (74-106); High Density Lipoprotein 30 mg/dL; Potassium 3.7 mmol/L (3.5-5.1); Protein, Total 6.8 g/dL (6.4-8.2); Sodium Level 139 mmol/L (136-145); Triglycerides 529 mg/dL
== END | disposition home or self-care (01) ==
LOC: POLAB3 09:25
PROVIDERS: PCP Family Medicine Geriatric Medicine; Visit Provider Family Medicine Geriatric Medicine
DX: E78.5 Hyperlipidemia, unspecified (principal); R53.83 Other fatigue
CPT/HCPCS: 36415; 80053; 80061; 82306; 84443; 85025

== ENCOUNTER → 2022-12-30 | Outpatient (CLI) | payer MEDICARE, SELFPAY ==
--- NOTE | 2022-12-30 13:29 | NEURO ---
NCS and/or EMG Patient Report Ordering Doctor: Jb Antunez Chi DATE OF SERVICE: 12/30/22 Edarmin presents electrodiagnostic testing of the left upper limb. He reports intermittent numbness in the left arm and hand for the past several months. He denies any trauma. Electrodiagnostic findings: Left median motor nerve demonstrates normal distal latency, amplitude and conduction velocity. Normal left ulnar motor response, including conduction across the elbow. Normal median and ulnar F-wave. Borderline prolonged left median sensory latency at the wrist. Normal left median palmar response. Normal ulnar and radial sensory responses. On needle EMG, all muscles tested in the left upper limb showed no evidence of denervation with normal motor unit action potentials. Electrodiagnostic impression: This is a normal electrodiagnostic study of the left upper limb. There is no electrodiagnostic evidence for peripheral neuropathy, including carpal tunnel or cubital tunnel syndrome. There is no electrodiagnostic evidence for cervical radiculopathy.
== END | disposition home or self-care (01) ==
PROVIDERS: PCP Family Medicine Geriatric Medicine; Referring Provider Family Medicine Geriatric Medicine; Visit Provider Family Medicine Geriatric Medicine
DX: R20.0 Anesthesia of skin (principal)
CPT/HCPCS: 95886; 95910

== ENCOUNTER → 2023-11-29 | Outpatient (CLI) | payer MEDICARE, SELFPAY ==
[2023-11-29 10:36] LABS: Absolute Lymphocyte Count 2.32 X10^3/uL (0.83-4.51); Absolute Neutrophil Count 5.3 X10^3/uL (2.0-7.7); Basophil# 0.14 X10^3/uL; Basophil% 1.6 % (0-1); Eosinophils% 3.4 % (0-5); Hematocrit 50.9 % (40-54); Hemoglobin 17.3 g/dL (13.0-16.5); Lymphocyte # 2.32 X10^3/ul (0.83-4.51); Lymphocyte % 26.1 % (19-41); Mean Corpuscular Hgb 31.4 pg (27.0-32.0); Mean Corpuscular Volume 92.4 fL (80-94); Mean Platelet Vol. 10.2 fl (6.2-12.0); Monocyte# 0.78 X10^3/uL; Monocyte% 8.8 % (0-10); NRBC Flagged by Analyzer 0 % (0-5); Neutrophil # 5.33 X10^3/uL (2.7-7.7); Neutrophil % 59.9 % (47-70); Platelet Count 227 K/mm3 (150-450); RBC Distribution Width CV 13.2 % (11.6-14.6); Red Blood Count 5.51 M/mm3 (4.6-6.2); White Blood Count 8.9 K/mm3 (4.4-11.0)
[2023-11-29 10:59] LABS: Microalbumin,Random Urine < 5.0 mg/L (NO RANGE EST.)
[2023-11-29 11:11] LABS: ALB/GLOB Ratio 1.1 RATIO (0.9-2.4); AST(SGOT) 20 U/L (15-37); Alanine Aminotransfer ALT/SGPT 32 U/L (16-61); Albumin, Serum 3.7 g/dL (3.2-5.0); Alkaline Phosphatase 87 U/L (45-117); Anion Gap 4 (5-15); BUN 14 mg/dL (7-18); BUN/Creat Ratio 16.8 RATIO (10-20); Calcium,Total 8.6 mg/dL (8.5-10.1); Chloride 102 mmol/L (98-107); Cholesterol 174 mg/dL (200); Creatinine, Serum 0.84 mg/dL (0.70-1.30); EST Glomerular Filtration Rate 102 mL/min (>60); Est Glom Filt Rate - Afr Amer 124 mL/min (>60); Globulin 3.4 g/dL (2.2-4.2); Glucose 128 mg/dL (74-106); High Density Lipoprotein 33 mg/dL; Potassium 3.9 mmol/L (3.5-5.1); Protein, Total 7.1 g/dL (6.4-8.2); Sodium Level 136 mmol/L (136-145); Thyroid Stim Hormone (TSH) 2.91 uIU/mL (0.358-3.74); Triglycerides 424 mg/dL
[2023-11-29 11:18] LABS: Hemoglobin A1c 6.7 % (3.8-5.6)
== END | disposition home or self-care (01) ==
LOC: POLAB3 09:08
PROVIDERS: PCP Family Medicine Geriatric Medicine; Visit Provider Family Medicine Geriatric Medicine
DX: E11.65 Type 2 diabetes mellitus with hyperglycemia (principal); I10 Essential (primary) hypertension; E78.5 Hyperlipidemia, unspecified
CPT/HCPCS: 36415; 80053; 80061; 82043; 83036; 84443; 85025

== ENCOUNTER → 2024-06-21 | Outpatient (CLI) | payer MEDICARE, SELFPAY ==
--- OUTSIDE RECORDS SUMMARY | 2024-06-21 10:58 | XMS RPT_ITS | CCD ---
Author Organization [facility] Care Team Providers Care Global Account Director Name Role Phone Jb Antunez Chi Unavailable BENITO AREVALO Attending Unavailable Allergies Allergy Classification Reported Allergen(s) Allergy Type Date of Onset Reaction(s) Facility (2 sources) Codeine; Translations: [CODEINE] Drug Allergy 12-20-2008 [facility] Work Phone: (2 sources) Penicillins; Translations: [PENICILLINS] Propensity to adverse reactions 12-20-2008 [facility] Work Phone: Medications Completed/Discontinued Medications Medication Drug Class(es) Dates Sig (Normalized) Sig (Original) aspirin 325 mg oral tablet (1 source) Platelet Aggregation Inhibitor, Nonsteroidal Anti-inflammatory Drug Start: 9 End: 4 ASPIRIN 325 MG TAB Take one(1) tablet daily. 0 12/20/2008 12/13/2023 Discontinued Comment on above: Take one(1) tablet d aily. atorvastatin 80 mg oral tablet (1 source) HMG-CoA Reductase Inhibitor Start: 9 take 1 tablet by mouth once daily atorvastatin calcium(LIPITOR 80 MG TAB) Take 80 mg by mouth once daily. 0 12/20/2008 Active Comment on above: Take 80 mg by mouth once daily. 24 hr buPROPion hydrochloride 150 mg extended release oral tablet (1 source) Aminoketone Start: 9 End: 4 BUPROPION XL 150 MG TAB Take one(1) tablet two(2) times daily. 0 12/20/2008 12/13/2023 Discontinued Comment on above: Take one(1) tablet t wo(2) times daily. carvedilol 25 mg oral tablet (1 source) alpha-Adrenergic Bhavin, beta-Adrenergic Bhavin Start: 4 take 1 tablet by mouth every twelve hours carvedilol (COREG) 25 mg tablet Take 1 tablet by mouth every 12 hours. 0 12/02/2023 Active Comment on above: Take 1 tablet by arin every 12 hours. celecoxib 200 mg oral capsule (1 source) Nonsteroidal Anti-inflammatory Drug Start: 9 End: 4 celecoxib(CELEBREX 200 MG CAP) Take one(1) capsule twice daily. 0 12/20/2008 12/13/2023 Discontinued Comment on above: Take one(1) capsule twice daily. clonazePAM 1 mg oral tablet (1 source) Benzodiazepine Start: 9 End: 4 clonazepam(KLONOPIN 1 MG TAB) Take one(1) tablet daily. 0 12/20/2008 12/13/2023 Discontinued Comment on above: Take one(1) tablet d aily. cyclobenzaprine hydrochloride 10 mg oral tablet (1 source) Muscle Relaxant Start: 9 take 1 tablet by mouth every twelve hours as needed cyclobenzaprine hcl(FLEXERIL 10 MG TAB) Take 10 mg by mouth two times a day as needed. 0 12/20/2008 Active Comment on above: Take 10 mg by mouth two times a day as needed. diclofenac sodium 75 mg delayed release oral tablet (1 source) Nonsteroidal Anti-inflammatory Drug Start: 4 take 1 tablet by mouth twice daily diclofenac, EC, (VOLTAREN) 75 mg EC tablet Take 75 mg by mouth two times a day. 0 10/11/2023 Active Comment on above: Take 75 mg by mouth two times a day. DULoxetine 60 mg delayed release oral capsule (1 source) Serotonin and Norepinephrine Reuptake Inhibitor Start: 9 End: 4 duloxetine hcl(CYMBALTA 60 MG CAP) Take one(1) capsule daily. 0 12/20/2008 12/13/2023 Discontinued Comment on above: Take one(1) capsule daily. fenofibrate 145 mg oral tablet (1 source) Peroxisome Proliferator Receptor alpha Agonist Start: 9 End: 4 fenofibrate nanocrystallized(TR ICOR 145 MG TAB) Take one(1) tablet daily. 0 12/20/2008 12/13/2023 Discontinued Comment on above: Take one(1) tablet d aily. furosemide 40 mg oral tablet (1 source) Loop Diuretic Start: 4 take 1 tablet by mouth once furosemide (LASIX) 40 mg tablet Take 1 tablet by mouth every afternoon. 0 11/20/2023 Active Comment on above: Take 1 tablet by arin th every afternoon. gabapentin 600 mg oral tablet (1 source) Anti-epileptic Agent Start: 9 End: 4 GABAPENTIN 600 MG TAB Take one(1) tablet four (4) times daily. 0 12/20/2008 12/13/2023 Discontinued Comment on above: Take one(1) tablet f our (4) times daily. hydroCHLOROthiazide 12.5 mg / losartan potassium 50 mg oral tablet (1 source) Thiazide Diuretic, Angiotensin 2 Receptor Bhavin Start: 9 End: 4 losartan/hydrochlor othiazide(HYZAAR 50 MG-12.5 MG TAB) Take one(1) tablet daily. 0 12/20/2008 12/13/2023 Discontinued Comment on above: Take one(1) tablet d aily. multivitamins(DAILY VITAMIN TAB) (1 source) Start: 9 take 1 tablet by mouth once daily multivitamins(DAILY VITAMIN TAB) Take 1 tablet by mouth once daily. 0 12/20/2008 Active Comment on above: Take 1 tablet by arin th once daily. oxyCODONE hydrochloride 5 mg oral tablet (1 source) Opioid Agonist Start: 9 End: 4 OXYCODONE 5 MG TAB as needed for pain 0 12/20/2008 12/13/2023 Discontinued Comment on above: as needed for pain Problems Active Problems Problem Classification Problem Date Documented Da te Episodic/Chronic Deficiency and other anemia (2 sources) Increased hemoglobin; Translations: [Other hemoglobinopathie s] Onset: 12-13-2023 12-13-2023 Chronic Past or Other Problems Problem Classification Problem Date Documented Da te Episodic/Chronic Biliary tract disease (1 source) Chronic cholecystitis; Translations: [Chronic cholecystitis] Onset: 12-20-2008 12-20-2008 Episodic Results Test Name Value Interpretation Reference Range Facil ity CNOVSPon 12-13-2023 CNOVSP Visit (SP) Office (H EMAWS) -- TYLERSTAN Acosta ([id number]) 1970 M Date Time Provider Department 12/13/23 1:30 PM BENITO AREVALO HEMAWS During your visit today, we recorded the following information about you: Temperature Pulse Blood pressure Weight 98.2 degrees 78/minute 147/84 113.2 kg Benito Arevalo DO 12/13/2023 2:14 PM Signed Patient referred by Dr. Antunez for elevated Hgb. The impression and plan will be communicated by way of the shared electronic record or faxed under separate cover letter. HPI: The patient is a 53-year-old male with a past medical history significant for hypertension, type 2 diabetes, nonischemic cardiomyopathy, HFrEF (cardiac catheterization 2014--ejection fraction was 15%. Prior cardiac catheterization in 2011--no obstructive coronary artery disease with an estimated EF of 45%), hyperlipidemia and smoking. He has had intermittent elevation of hemoglobin over the last several years. For instance in 2014 hemoglobin 15.7 g/dL but in September and December 2015 the values were 16.7 and 16.8 g/dL respectively. Then he had a reading of 15.2 g/dL in December 2016 reading of 17.4 g/dL in August 2019 and a reading of 16.1 g/dL and October 2020. It was 16.7 g/dL in January 2021 and 15.9 g/dL in October 2022. Most recent level was 7.3 g/dL on 11/29/2023. Highest recorded hematocrit however was most recently on 11/28 at 50.9%. Platelet count has been normal in all readings dating back to at least July 2012. He has been observed to have very mild basophilia dating back to 2011. Most recent level was 1.6% on the CBC from 11/28. At that time the total white count was 8900. The remainder the differential was normal. On disability since 2002--ruptured disk 2001; then CHF. Most recent back surgery 2014. Not significantly short of breath with exertion. About a pack a day. One time was about 2 1/2 to [address] Used to see Dr[address] Millan--had testing for MICHELLE--was on CPAP. Lost weight following (was nearly 300 lb) and hasn't been on CPAP since. sometimes complains of his snoring. 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 carvedilol (COREG) 25 mg tablet Take 1 tablet by mouth every 12 hours. furosemide (LASIX) 40 mg tablet Take 1 tablet by mouth every afternoon. atorvastatin calcium(LIPITOR 80 MG TAB) Take 80 mg by mouth once daily. cyclobenzaprine hcl(FLEXERIL 10 MG TAB) Take 10 mg by mouth two times a day as needed. multivitamins(DAILY VITAMIN TAB) Take 1 tablet by mouth once daily. No current facility-administered medications for this visit. Social History Tobacco Use Smoking status: Every Day Types: Cigarettes Passive exposure: Yes Smokeless tobacco: Never Vaping Use Vaping Use: Never used Substance Use Topics Alcohol use: Yes Comment: occ Drug use: No Family History Problem Relation Age of Onset Diabetes Mother Coronary Artery Disease Father Kidney Disease Brother Cancer Paternal Grandfather ROS: Constitutional: No fever. No drenching night sweats. Normal appetite. No unexplained weight loss. Neuro: No recent PAREDES, vertigo, dizziness or imbalance. HEENT: No recent change in voice, vision or hearing. Resp: Denies cough, wheeze and hemoptysis. No shortness of breath at rest. CVS: No exertional chest pain, PND or orthopnea. GI: No reflux, n/v, change in bowel habits. No abdominal pain, bloating or distension. No black or bloody stools. : No dysuria or gross hematuria. Endo: No hot flashes. No polyuria or polydipsia. No heat or cold intolerance. Musculoskeletal: Chronic back pain. Derm: No current rash. No history of jaundice. No diffuse pruritis. Heme: No unusual bleeding and unexplained bruising. Psych: Normal mood. PHYSICAL EXAM: Vitals: Blood pressure 147/84, pulse 78, temperature 36.8 ?C (98.2 ?F), temperature source Temporal, weight 113.2 kg (249 lb 8 oz), SpO2 96%. Well-appearing and in no acute distress. EYES: Sclerae are anicteric bilaterally. LYMPHATIC: There is no palpable cervical, supraclavicular adenopathy. RESPIRATORY: Inspiratory breath sounds are of diminished intensity in all shaikh. No rales, wheezes or rhonchi. CARDIOVASCULAR: Rhythm is regular. ABDOMEN: The abdomen is nondistended. (more content not included)... Normal [facility] Vital Signs Date Time Vital Sign Value Performing Clinician Paz amador 12-13-2023 13:29-0400 Body temperature 98.2 [degF] Benito Arevalo DO Work Phone: [facility] 12-13-2023 13:29-0400 Body weight 113.17 kg Benito Shaveri DO Work Phone: [facility] 12-13-2023 13:29-0400 Diastolic blood pressure 84 mm[Hg] Benito Shaveri DO Work Phone: [facility] 12-13-2023 13:29-0400 Heart rate 78 /min Benito Shaveri DO Work Phone: [facility] 12-13-2023 13:29-0400 SaO2% (BldA) [Mass fraction] 96 % Benito Shaveri DO Work Phone: [facility] 12-13-2023 13:29-0400 Systolic blood pressure 147 mm[Hg] Benito Chhayai DO Work Phone: [facility] Encounters Encounter Date Encounter Type Care Provider Facility Start: 12-13-2023 End: 12-13-2023 ambulatory BENITO AREVALO Facility:[facility] Start: 12-13-2023 End: 12-13-2023 ambulatory Benito Arevalo DO Work Phone: Hematology/Oncology Comment on above: Elevated hemoglobin (HCC) (Primary Dx) Start: 12-13-2023 End: 12-13-2023 Patient encounter procedure Benito Arevalo DO Work Phone: [facility] Plan of Treatment Date Care Activity Detail Author Start: 04-30-2024 Influenza vaccination Influenz a Vaccine (Season Ended) [facility] Start: 08-30-2023 Behavioral Health Screening Behavioral Health Screening [facility] Start: 04-30-2023 Covid-19 Vaccine ( season) Covid-19 Vaccine ( season) [facility] Start: 2021 Shingrix Vaccine (1 of 2) Shingrix V accine (1 of 2) [facility] Start: 01-13-2016 Diabetes Screening Diabetes Screenin g [facility] Start: 01-13-2016 Screening for malign ant neoplasm of colon [facility] Start: 2006 Lipid panel Lipid Screening [facility] Start: 1990 Hepatitis B Vaccine (1 of 3 - 19+ 3-dose series) Hepatitis B Vaccine (1 of 3 - 19+ 3-dose series) [facility] Start: 1990 Urine microalbumin profile DTaP,Tdap,Td Vaccine (1 - Tdap) [facility] Start: 1989 Hepatitis C screening Hepatitis C Sc reening [facility] Start: 1989 HIV screening HIV Screening [facility] Start: 1977 Pneumococcal vaccination Pneum ococcal Vaccine (1 of 2 - PCV) [facility] Payers Date Payer Category Payer Medicare [employer] MEDICARE [employer] MEDICARE PPO [id number] 2023-Present [phone] [address] [address] [place] [address] PPO [id number] 2023 Medicare [id number] Social History Date Type Detail Facility Start: 12-13-2023 Tobacco smoking stat us VAIS Smokes tobacco daily [facility] History of tobacco use Cigarette Smoker [facility] History of tobacco use Passive smoker [facility] Start: 12-13-2023 Tobacco use and exposure Smoke less tobacco non-user [facility] Start: 12-13-2023 Alcohol intake Current drinke r of alcohol (finding) [facility] Start: 12-13-2023 History of Social function [facility] Start: 12-13-2023 Tobacco use panel Chrsitopher tang [facility] Start: 12-13-2023 Alcohol Comment occ Kenny hope [facility] Start: 1970 Sex Assigned At Not on file [facility] Progress note 12-13-2023 Note Date & Type Note Facility 12-13-2023 Note HNO ID: [id number] Author: BENITO AREVALO, DO Service: ? Author Type: Physician Type: Progress Notes Filed: 12/13/2023 14:14 Note Text: Patient referred by Dr. Antunez for elevated Hgb. The impression and plan will be communicated by way of the shared electronic record or faxed under separate cover letter. HPI: The patient is a 53-year-old male with a past medical history significant for hypertension, type 2 diabetes, nonischemic cardiomyopathy, HFrEF (cardiac catheterization 2014--ejection fraction was 15%. Prior cardiac catheterization in 2011--no obstructive coronary artery disease with an estimated EF of 45%), hyperlipidemia and smoking. He has had intermittent elevation of hemoglobin over the last several years. For instance in 2014 hemoglobin 15.7 g/dL but in September and December 2015 the values were 16.7 and 16.8 g/dL respectively. Then he had a reading of 15.2 g/dL in December 2016 reading of 17.4 g/dL in August 2019 and a reading of 16.1 g/dL and October 2020. It was 16.7 g/dL in January 2021 and 15.9 g/dL in October 2022. Most recent level was 7.3 g/dL on 11/29/2023. Highest recorded hematocrit however was most recently on 11/28 at 50.9%. Platelet count has been normal in all readings dating back to at least July 2012. He has been observed to have very mild basophilia dating back to 2011. Most recent level was 1.6% on the CBC from 11/28. At that time the total white count was 8900. The remainder the differential was normal. On disability since 2002--ruptured disk 2001; then CHF. Most recent back surgery 2014. Not significantly short of breath with exertion. About a pack a day. One time was about 2 1/2 to [address] ppd[address] Used to see Dr[address] Millan--had testing for MICHELLE--was on CPAP. Lost weight following (was nearly 300 lb) and hasn't been on CPAP since. sometimes complains of his snoring. 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 carvedilol (COREG) 25 mg tablet Take 1 tablet by mouth every 12 hours. furosemide (LASIX) 40 mg tablet Take 1 tablet by mouth every afternoon. atorvastatin calcium(LIPITOR 80 MG TAB) Take 80 mg by mouth once daily. cyclobenzaprine hcl(FLEXERIL 10 MG TAB) Take 10 mg by mouth two times a day as needed. multivitamins(DAILY VITAMIN TAB) Take 1 tablet by mouth once daily. No current facility-administered medications for this visit. Social History Tobacco Use Smoking status: Every Day Types: Cigarettes Passive exposure: Yes Smokeless tobacco: Never Vaping Use Vaping Use: Never used Substance Use Topics Alcohol use: Yes Comment: occ Drug use: No Family History Problem Relation Age of Onset Diabetes Mother Coronary Artery Disease Father Kidney Disease Brother Cancer Paternal Grandfather ROS: Constitutional: No fever. No drenching night sweats. Normal appetite. No unexplained weight loss. Neuro: No recent PAREDES, vertigo, dizziness or imbalance. HEENT: No recent change in voice, vision or hearing. Resp: Denies cough, wheeze and hemoptysis. No shortness of breath at rest. CVS: No exertional chest pain, PND or orthopnea. GI: No reflux, n/v, change in bowel habits. No abdominal pain, bloating or distension. No black or bloody stools. : No dysuria or gross hematuria. Endo: No hot flashes. No polyuria or polydipsia. No heat or cold intolerance. Musculoskeletal: Chronic back pain. Derm: No current rash. No history of jaundice. No diffuse pruritis. Heme: No unusual bleeding and unexplained bruising. Psych: Normal mood. PHYSICAL EXAM: Vitals: Blood pressure 147/84, pulse 78, temperature 36.8 ?C (98.2 ?F), temperature source Temporal, weight 113.2 kg (249 lb 8 oz), SpO2 96%. Well-appearing and in no acute distress. EYES: Sclerae are anicteric bilaterally. LYMPHATIC: There is no palpable cervical, supraclavicular adenopathy. RESPIRATORY: Inspiratory breath sounds are of diminished intensity in all shaikh. No rales, wheezes or rhonchi. CARDIOVASCULAR: Rhythm is regular. ABDOMEN: The abdomen is nondistended. No splenomegaly or hepatomegaly. No tenderness. Extremities: No swelling or edema. SKIN: No jaundice. ASSESSMENT/PLAN: (D58.2) Elevated hemoglobin (HCC) (primary encounter diagnosis) Assessment: -The patient is a 53-year-old male with a past medical history as outlin (more content not included)... [facility] History of Present illness Narrative 12-13-2023 Benito Arevalo DO - 12/13/2023 1:25 PM EDT Note Date & Type Note Facility 12-13-2023 History of Presen t illness Narrative Patient referred by Dr. Antunez for elevated Hgb. The impression and plan will be communicated by way of the shared electronic record or faxed under separate cover letter. HPI: The patient is a 53-year-old male with a past medical history significant for hypertension, type 2 diabetes, nonischemic cardiomyopathy, HFrEF (cardiac catheterization 2014--ejection fraction was 15%. Prior cardiac catheterization in 2011--no obstructive coronary artery disease with an estimated EF of 45%), hyperlipidemia and smoking. He has had intermittent elevation of hemoglobin over the last several years. For instance in 2014 hemoglobin 15.7 g/dL but in September and December 2015 the values were 16.7 and 16.8 g/dL respectively. Then he had a reading of 15.2 g/dL in December 2016 reading of 17.4 g/dL in August 2019 and a reading of 16.1 g/dL and October 2020. It was 16.7 g/dL in January 2021 and 15.9 g/dL in October 2022. Most recent level was 7.3 g/dL on 11/29/2023. Highest recorded hematocrit however was most recently on 11/28 at 50.9%. Platelet count has been normal in all readings dating back to at least July 2012. He has been observed to have very mild basophilia dating back to 2011. Most recent level was 1.6% on the CBC from 11/28. At that time the total white count was 8900. The remainder the differential was normal. On disability since 2002--ruptured disk 2001; then CHF. Most recent back surgery 2014. Not significantly short of breath with exertion. About a pack a day. One time was about 2 1/2 to 3 [address] Used to see Dr[address] Millan--had testing for MICHELLE--was on CPAP. Lost weight following (was nearly 300 lb) and hasn't been on CPAP since. sometimes complains of his snoring. 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 carvedilol (COREG) 25 mg tablet Take 1 tablet by mouth every 12 hours. furosemide (LASIX) 40 mg tablet Take 1 tablet by mouth every afternoon. atorvastatin calcium(LIPITOR 80 MG TAB) Take 80 mg by mouth once daily. cyclobenzaprine hcl(FLEXERIL 10 MG TAB) Take 10 mg by mouth two times a day as needed. multivitamins(DAILY VITAMIN TAB) Take 1 tablet by mouth once daily. No current facility-administered medications for this visit. Social History Tobacco Use Smoking status: Every Day Types: Cigarettes Passive exposure: Yes Smokeless tobacco: Never Vaping Use Vaping Use: Never used Substance Use Topics Alcohol use: Yes Comment: occ Drug use: No Family History Problem Relation Age of Onset Diabetes Mother Coronary Artery Disease Father Kidney Disease Brother Cancer Paternal Grandfather ROS: Constitutional: No fever. No drenching night sweats. Normal appetite. No unexplained weight loss. Neuro: No recent PAREDES, vertigo, dizziness or imbalance. HEENT: No recent change in voice, vision or hearing. Resp: Denies cough, wheeze and hemoptysis. No shortness of breath at rest. CVS: No exertional chest pain, PND or orthopnea. GI: No reflux, n/v, change in bowel habits. No abdominal pain, bloating or distension. No black or bloody stools. : No dysuria or gross hematuria. Endo: No hot flashes. No polyuria or polydipsia. No heat or cold intolerance. Musculoskeletal: Chronic back pain. Derm: No current rash. No history of jaundice. No diffuse pruritis. Heme: No unusual bleeding and unexplained bruising. Psych: Normal mood. PHYSICAL EXAM: Vitals: Blood pressure 147/84, pulse 78, temperature 36.8 C (98.2 F), temperature source Temporal, weight 113.2 kg (249 lb 8 oz), SpO2 96%. Well-appearing and in no acute distress. EYES: Sclerae are anicteric bilaterally. LYMPHATIC: There is no palpable cervical, supraclavicular adenopathy. RESPIRATORY: Inspiratory breath sounds are of diminished intensity in all shaikh. No rales, wheezes or rhonchi. CARDIOVASCULAR: Rhythm is regular. ABDOMEN: The abdomen is nondistended. No splenomegaly or hepatomegaly. No tenderness. Extremities: No swelling or edema. SKIN: No jaundice. ASSESSMENT/PLAN: (D58.2) Elevated hemoglobin (HCC) (primary encounter diagnosis) Assessment: -The patient is a 53-year-old male with a past medical history as outlined above who has had intermittent increase in hemoglobin mass on CBCs dating back to approximately 2011. He is a current 1 pack a day smoker (used to be heavier) and was treated for sleep apnea in the past but discontinued treatment after losing weight and when his equipment became outdated. 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 -We discussed strategies for smoking cessation. He was not able to afford the patch previously. He had an adverse reaction to Wellbutrin because chest pain and he had been on Chantix quite sometime ago but he had side effects with that as well. Discussed efforts at continuing to cut down on smoking. Plan: -No further hematologic workup clearly indicated at this point. -Encouraged him to ask Dr. Antunez for referral for sleep apnea testing. -Continue to cut down on smoking. -Would monitor CBC perhaps every 3 months and if has increasing hemoglobin/hematocrit and/or red blood cell count then referral back for further workup. I spent a total of 60 minutes on the date of the service which included preparing to see the patient (reviewing labs/notes in [facility]), [id number] patient care, completing clinical documentation, obtaining and/or reviewing separately obtained history, performing a medically appropriate examination, counseling and educating the patient/family/caregiver, ordering medications, tests, or procedures, communicating with other HCPs (not separately reported), and communicating results to the patient/family/caregiver. Benito Arevalo DO documented in this encounter [facility] Evaluation note Note Date & Type Note Facility Evaluation note Diagnosis Elevated hemoglobin (HCC)- Primary Other hemoglobinopathies documented in this encounter [facility] Summary Purpose Family History No Family History Records Found Advance Directives No Advanced Directives Records Found Additional Source Comments Source Comments (unrecognize d section and content) In the event this informatio n is protected by the Federal Confidentiality of Alcohol and Drug Abuse Patient Records regulations: The Federal rules restrict any use of the information to criminally investigate or prosecute any alcohol or drug abuse patient.[facility] Reason for Visit (unrecogniz ed section and content) Reason Comments New Patient Care Teams (unrecognized sec tion and content) Global Account Director Relationship Specialty Start Date End Date Jb Antunez Chi [address] [facility] [address] [place] [address] Gerontology 12/01/23 (unrecognized sect ion and content) No Status Records Found INFORMATION SOURCE (unrecogn ized section and content) DATE CREATED AUTHOR 12/14/2023 [facility] FOR RECORDS PERTAINING TO PATIENTS WHO ARE OR HAVE BEEN ENROLLED IN A CHEMICAL DEPENDENCY/SUBSTANCEABUSE PROGRAM, SOME INFORMATION MAY BE OMITTED. This clinical summary was aggregated from multiple sources. Caution should be exercised in using it in the provision of clinical care. This summary normalizes information from multiple sources, and as a consequence, information in this document may materially change the coding, format and clinical context of patient data. In addition, data may be omitted in some cases. CLINICAL DECISIONS SHOULD BE BASED ON THE PRIMARY CLINICAL RECORDS. [facility] Locality [facility]. provides no warranty or guarantee of the accuracy or completeness of information in this document.
[2024-06-21 11:03] LABS: Absolute Lymphocyte Count 2.09 X10^3/uL (0.83-4.51); Absolute Neutrophil Count 5.1 X10^3/uL (2.0-7.7); Basophil# 0.08 X10^3/uL; Eosinophil# 0.29 X10^3/uL; Eosinophils% 3.5 % (0-5); Hematocrit 49.2 % (40-54); Hemoglobin 16.9 g/dL (13.0-16.5); Lymphocyte # 2.09 X10^3/ul (0.83-4.51); Lymphocyte % 25.4 % (19-41); Mean Corp Hgb Conc 34.3 g/dL (32-36); Mean Corpuscular Hgb 31.9 pg (27.0-32.0); Mean Corpuscular Volume 92.8 fL (80-94); Mean Platelet Vol. 10.6 fl (6.2-12.0); Monocyte% 8.5 % (0-10); NRBC Flagged by Analyzer 0 % (0-5); Neutrophil # 5.05 X10^3/uL (2.7-7.7); Neutrophil % 61.4 % (47-70); Platelet Count 229 K/mm3 (150-450); RBC Distribution Width CV 13.8 % (11.6-14.6); RBC Distribution Width SD 46.6 fl (35.1-43.9); White Blood Count 8.2 K/mm3 (4.4-11.0)
[2024-06-21 11:37] LABS: Hemoglobin A1c 6.4 % (3.8-5.6)
[2024-06-21 11:44] LABS: AST(SGOT) 15 U/L (15-37); Alanine Aminotransfer ALT/SGPT 37 U/L (16-61); Albumin, Serum 3.6 g/dL (3.2-5.0); Alkaline Phosphatase 85 U/L (45-117); Anion Gap 5 (5-15); BUN 12 mg/dL (7-18); BUN/Creat Ratio 11.8 RATIO (10-20); Calcium,Total 9.1 mg/dL (8.5-10.1); Chloride 105 mmol/L (98-107); Cholesterol 187 mg/dL (200); Creatinine, Serum 1.02 mg/dL (0.70-1.30); EST Glomerular Filtration Rate 81 mL/min (>60); Est Glom Filt Rate - Afr Amer 98 mL/min (>60); Globulin 3.7 g/dL (2.2-4.2); Glucose 127 mg/dL (74-106); High Density Lipoprotein 30 mg/dL; Potassium 3.8 mmol/L (3.5-5.1); Protein, Total 7.3 g/dL (6.4-8.2); Sodium Level 140 mmol/L (136-145); Triglycerides 590 mg/dL
== END | disposition home or self-care (01) ==
LOC: POLAB3 10:18
PROVIDERS: PCP Family Medicine Geriatric Medicine; Visit Provider Family Medicine Geriatric Medicine
DX: E78.5 Hyperlipidemia, unspecified (principal); E11.65 Type 2 diabetes mellitus with hyperglycemia; I10 Essential (primary) hypertension
CPT/HCPCS: 36415; 80053; 80061; 83036; 84443; 85025

== ENCOUNTER → 2024-07-17 | Outpatient (CLI) | payer MEDICARE, SELFPAY ==
[2024-07-17 11:36] LABS: Iron 131 ug/dL (65-175); Iron Binding Capacity,Total 325 ug/dL (250-450); PERCENT IRON SATURATION 40.3 % (15.0-55.0)
== END | disposition home or self-care (01) ==
PROVIDERS: PCP Family Medicine Geriatric Medicine; Referring Provider Physician Assistant Medical; Visit Provider Physician Assistant Medical
DX: D58.2 Other hemoglobinopathies (principal)
CPT/HCPCS: 36415; 83540; 83550

== ENCOUNTER → 2024-08-18 | Outpatient (CLI) | payer MEDICARE, SELFPAY ==
--- NOTE | 2024-08-18 09:33 | ECHOD_ITS ---
Reason For Study: Dilated CMP Procedure This was a 2D Doppler, Color Flow transthoracic echocardiogram. Exam performed in department. Left Ventricle Normal LV size. Mild concentric left ventricular hypertrophy. The left ventricular ejection fraction is 45 %. Stage 1 diastolic dysfunction. No regional wall motion abnormalities noted. Right Ventricle Normal RV size. Normal systolic function. Atria Normal left atrium. Normal right atrium. Mitral Valve Normal mitral valve. Tricuspid Valve Normal tricuspid valve. Aortic Valve Trisinus/trileaflet aortic valve. Pulmonic Valve Normal pulmonic valve. Great Vessels Normal aortic root. The pulmonary artery is normal size. Normal inferior vena cava. Pericardium/Pleural No pericardial effusion. MMode/2D Measurements & Calculations LVIDd: 5.1 cm IVSd: 1.2 cm Ao root diam: 3.4 cm LVIDs: 4.4 cm LVPWd: 1.3 cm RVDd: 3.9 cm FS: 14.4 % LAV(MOD-bp): 52.6 ml LVAd ap4: 37.3 cm2 LVAd ap2: 34.8 cm2 LAV(MOD-bp) Indexed: 22.6 ml/m2 LVLd ap4: 9.0 cm LVLd ap2: 9.0 cm LAV(MOD-sp2): 44.6 ml EDV(MOD-sp4): 131.9 ml EDV(MOD-sp2): 116.0 ml LAV(MOD-sp4): 52.0 ml EDV(sp4-el): 131.0 ml EDV(sp2-el): 114.3 ml LVAs ap4: 26.9 cm2 LVAs ap2: 24.4 cm2 LVLs ap4: 8.2 cm LVLs ap2: 8.3 cm ESV(MOD-sp4): 75.2 ml ESV(MOD-sp2): 62.0 ml ESV(sp4-el): 74.7 ml ESV(sp2-el): 61.2 ml EF(MOD-sp4): 43.0 % EF(MOD-sp2): 46.5 % EF(sp4-el): 42.9 % SV(MOD-sp4): 56.7 ml SV(MOD-sp2): 54.0 ml SV(sp4-el): 56.2 ml SI(MOD-sp4): 24.4 ml/m2 SI(MOD-sp2): 23.2 ml/m2 LA A4 area: 19.3 cm2 LA dimension(2D): 3.7 cm RA A4 area: 15.4 cm2 TAPSE: 2.2 cm Time Measurements MV dec time: 0.24 sec Doppler Measurements & Calculations MV E max boo: 58.4 cm/sec Lat Peak E' Boo: 8.2 cm/sec Med Peak E' Boo: 7.5 cm/sec MV A max boo: 89.8 cm/sec E/E' lat: 7.1 E/E' med: 7.7 MV E/A: 0.65 Ao V2 max: 148.7 cm/sec LV V1 max: 123.8 cm/sec MV dec slope: 240.5 cm/sec2 Ao max P.8 mmHg LV V1 max P.1 mmHg Ao V2 mean: 111.2 cm/sec LV V1 mean P.6 mmHg Ao mean P.4 mmHg LV V1 mean: 89.6 cm/sec Ao V2 VTI: 29.6 cm LV V1 VTI: 23.4 cm AV (velocity ratio): 0.79 PA V2 max: 103.5 cm/sec ECHO/Echo Complete Interpretation Summary The left ventricular ejection fraction is 45 %. Normal LV size. Mild concentric left ventricular hypertrophy. Stage 1 diastolic dysfunction. Compared to previous study, the left ventricular systolic function is the same. . Ordering Physician: Kaylen Singh Referring Physician: Jb Antunez Chi Performed By: Bebe Stevenson RDCS
== END | disposition home or self-care (01) ==
LOC: CVS 09:31
PROVIDERS: PCP Family Medicine Geriatric Medicine; Referring Provider Physician Assistant Medical; Visit Provider Physician Assistant Medical
DX: I42.8 Other cardiomyopathies (principal)
CPT/HCPCS: 93306